=== PATIENT | male | born 1980 | race Caucasian/White ===

== ENCOUNTER 2017-08-05 15:32 | Emergency (ER) | payer MEDICAID ==
[2017-08-05] MEDS ORDERED: Sodium Chloride 0.9% 10 ML Syringe FLUSH PRN (16:53)
[2017-08-05] MEDS ORDERED: Morphine 4 MG/ML Syringe IVPUSH ONE (16:55)
[2017-08-05] MEDS ORDERED: Prochlorperazine 10 MG/2 ML SDV IVPUSH ONE ×2 (16:56→21:01)
[2017-08-05] MEDS: Nitroglycerin 0.4 MG Tab.SL SL PRN ×2 (17:02→17:13)
--- NOTE | 2017-08-05 17:07 | EDM.PDOC ---
<OfficerBam - Last Filed: 08/05/17 17:08> ED HPI GENERAL MEDICAL PROBLEM - General Chief Complaint: Headache Stated Complaint: HIGH BP/HEADACHE Time Seen by Provider: 08/05/17 16:50 Source of Information: Reports: Patient, Family, Old Records, RN Notes Reviewed History Limitations: Reports: No Limitations - History of Present Illness INITIAL COMMENTS - FREE TEXT/NARRATIVE: 37-year-old gentleman presents to the emergency department today complaint of headache, he does have a history of known aortic dissection happened about one year ago he is currently not taking any medications. He also has a history of migraine headaches he states this migraine is typical for him and has been ongoing for 1 hour. He denies any chest pain nausea vomiting shortness of breath , however he is diaphoretic Headache Pain Score (Numeric/FACES): 5 - Related Data Allergies Allergy/AdvReac Type Severity Reaction Status Date / Time codeine Allergy Cannot Verified 02/25/16 21:58 Remember Home Meds: Home Meds Metoprolol Succinate 100 mg PO QAM #30 tab.er.24h 08/05/17 [Rx] Past Medical History HEENT History: Reports: Impaired Vision Cardiovascular History: Reports: Hypertension, Stents Other Cardiovascular History: stents. 1and half ago at [facility], for aortic dissection Genitourinary History: Reports: Other (See Below) Other Genitourinary History: also had kidney failure while at [facility] Neurological History: Reports: Cerebral Aneurysms, Migraines - Infectious Disease History Infectious Disease History: Reports: Chicken Pox Social & Family History - Family History Cardiac: Reports: Hypertension - Tobacco Use Smoking Status *Q: Current Every Day Smoker Years of Tobacco use: 16 Packs/Tins Daily: 0.5 Second Hand Smoke Exposure: Yes - Caffeine Use Caffeine Use: Reports: Soda - Recreational Drug Use Recreational Drug Use: No ED ROS GENERAL - Review of Systems Review Of Systems: See Below Constitutional: Reports: Diaphoresis. Denies: Fever HEENT: Reports: No Symptoms Respiratory: Reports: No Symptoms Cardiovascular: Reports: No Symptoms GI/Abdominal: Reports: No Symptoms : Reports: No Symptoms Musculoskeletal: Reports: No Symptoms Skin: Reports: No Symptoms Neurological: Reports: Headache Psychiatric: Reports: No Symptoms - Physical Exam Exam: See Below Text/Narrative:: General: Male, moderate discomfort secondary to pain, alert and oriented x3 HEENT: head is atraumatic normocephalic, eyes pupils equal round reactive to light, sclera clear no conjunctivitis appreciated, funduscopic exam reveals sharp disc margins no papilledema noted. Ears tympanic membranes clear and montiel landmarks and light reflex are present bilaterally canals are clear. Nose no septal deviation, nares are clear, no blood present. Mouth mucosa is moist and pink no erythema or exudate noted in soft palate, tongue is midline uvula is midline, dentition is intact. Neck: Supple no thyromegaly no tracheal deviation. Nodes: Cervical nodes subclavicular nodes nontender no palpable lymphadenopathy noted. Lungs: clear to auscultation bilaterally with symmetrical respirations, no adventitious noise appreciated. CV: Regular rate and rhythm S1 and S2 appreciated no murmurs rubs or gallops noted. Abdomen: Soft, nontender, no palpable masses or organomegaly appreciated, no distention no guarding bowel sounds are present, . Neuro: Cranial nerves II through XII grossly intact Skin: Warm and dry, intact Extremities: No lower extremity edema appreciated, Course - Vital Signs Last Recorded V/S: Last Vital Signs Temp 36.1 C 08/05/17 19:41 Pulse 62 08/05/17 22:16 Resp 13 08/05/17 22:16 BP 158/110 H 08/05/17 22:16 Pulse Ox 100 08/05/17 22:16 - Orders/Labs/Meds Orders: Active Orders 24 hr Category Date Time Status Cardiac Monitoring [RC] .As Directed Care 08/05/17 16:54 Active EKG Documentation Completion [RC] ASDIRECTED Care 08/05/17 16:55 Active Peripheral IV Care [RC] . DIRECTED Care 08/05/17 16:55 Active CELL COUNT,CSF [BF] Stat Lab 08/05/17 19:42 Ordered CELL COUNT,CSF [BF] Stat Lab 08/05/17 19:46 Ordered CULTURE CSF + SMEAR [RM] Stat Lab 08/05/17 19:42 Ordered DRUG SCREEN, URINE [URCHEM] Stat Lab 08/05/17 16:53 Ordered GLUCOSE,CSF [BF] Stat Lab 08/05/17 19:42 Ordered PROTEIN,CSF [BF] Stat Lab 08/05/17 19:42 Ordered UA W/MICROSCOPIC [URIN] Stat Lab 08/05/17 16:53 Ordered Lactated Ringers [Ringers, Lactated] 1,000 ml Med 08/05/17 17:00 Active IV .BOLUS Lactated Ringers [Ringers, Lactated] 1,000 ml Med 08/05/17 21:15 Active IV ASDIRECTED Nitroglycerin [Nitrostat] Med 08/05/17 16:53 Active 0.4 mg SL Q5M PRN Sodium Chloride 0.9% [Saline Flush] Med 08/05/17 16:53 Active 10 ml FLUSH ASDIRECTED PRN Peripheral IV Insertion Adult [OM.PC] Stat Oth 08/05/17 16:53 Ordered EKG 12 Lead [EK] Stat Ther 08/05/17 16:55 Ordered Medication Orders Lactated Ringer's (Ringers, Lactated) 1,000 mls @ 500 mls/hr IV .BOLUS ANGELO Last Admin: 08/05/17 21:13 Dose: 500 mls/hr Infusion: 08/05/17 19:50 Dose: 500 mls/hr Admin: 08/05/17 17:50 Dose: 500 mls/hr Lactated Ringer's (Ringers, Lactated) 1,000 mls @ 500 mls/hr IV ASDIRECTED ANGELO Nitroglycerin (Nitrostat) 0.4 mg SL Q5M PRN PRN Reason: Chest Pain Stop: 08/06/17 16:54 Last Admin: 08/05/17 17:13 Dose: 0.4 mg Admin: 08/05/17 17:02 Dose: 0.4 mg Sodium Chloride (Saline Flush) 10 ml FLUSH ASDIRECTED PRN PRN Reason: Keep Vein Open Last Admin: 08/05/17 18:37 Dose: 10 ml Labs: Laboratory Tests 08/05/17 08/05/17 08/05/17 Range/Units 16:53 16:53 16:53 WBC 17.0 H (4.5-11.0) K/uL RBC 5.49 (4.30-5.90) M/uL Hgb 15.6 H D (12.0-15.0) g/dL Hct 46.8 (40.0-54.0) % MCV 85 (80-98) fL MCH 28 (27-31) pg MCHC 33 (32-36) % Plt Count 193 (150-400) K/uL Neut % (Auto) 83 H (36-66) % Lymph % (Auto) 11 L (24-44) % [place] % (Auto) 5 (2-6) % Eos % (Auto) 1 L (2-4) % Baso % (Auto) 0 (0-1) % Sodium (140-148) mmol/L Potassium (3.6-5.2) mmol/L Chloride (100-108) mmol/L Carbon Dioxide (21-32) mmol/L Anion Gap (5.0-14.0) mmol/L BUN (7-18) mg/dL Creatinine (0.8-1.3) mg/dL Est Cr Clr Drug Dosing mL/min Estimated GFR (MDRD) (>60) Glucose (74-106) mg/dL Calcium (8.5-10.1) mg/dL Total Bilirubin (0.2-1.0) mg/dL AST (15-37) U/L ALT (12-78) U/L Alkaline Phosphatase (46-116) U/L Troponin I (0.000-0.056) ng/mL C-Reactive Protein (0.0-0.3) mg/dL Total Protein (6.4-8.2) g/dL Albumin (3.4-5.0) g/dL Globulin (2.3-3.5) g/dL Albumin/Globulin Ratio (1.2-2.2) Urine Color Yellow Urine Appearance Clear Urine pH 5.0 (4.5-8.0) Ur Specific [place] 1.025 (1.008-1.030) Urine Protein 500 H (NEGATIVE) mg/dL Urine Glucose (UA) Normal (NEGATIVE) mg/dL Urine Ketones Negative (NEGATIVE) mg/dL Urine Occult Blood Negative (NEGATIVE) Urine Nitrite Negative (NEGAITVE) Urine Bilirubin Negative (NEGATIVE) Urine Urobilinogen Normal (NORMAL) mg/dL Ur Leukocyte Esterase Negative (NEGATIVE) Urine RBC 0-5 (0-5) Urine WBC 0-5 (0-5) Ur Epithelial Cells Not seen Amorphous Sediment Few Urine Bacteria Not seen Urine Mucus Few CSF Tube Number CSF Volume mls CSF Appearance (CLEAR) CSF Color (COLORLESS) CSF WBC (0-5) /ul CSF RBC (0-0) /ul CSF Mononuclear Cells (54-100) % CSF Polymorphonuclear (0-7) % CSF Glucose (40-70) mg/dL CSF Total Protein (15-45) mg/dL Urine Opiates Screen Positive H (NEGATIVE) Ur Oxycodone Screen Negative (NEGATIVE) Urine Methadone Screen Negative (NEGATIVE) Ur Propoxyphene Screen Negative (NEGATIVE) Ur Barbiturates Screen Negative (NEGATIVE) Ur Tricyclics Screen Negative (NEGATIVE) Ur Phencyclidine Scrn Negative (NEGATIVE) Ur Amphetamine Screen Positive H (NEGATIVE) U Methamphetamines Scrn Positive H (NEGATIVE) Urine MDMA Screen Negative (NEGATIVE) U Benzodiazepines Scrn Negative (NEGATIVE) U Cocaine Metab Screen Negative (NEGATIVE) U Marijuana (THC) Screen Positive H (NEGATIVE) Ethyl Alcohol mg/dL 08/05/17 08/05/17 08/05/17 Range/Units 16:53 16:53 18:23 WBC (4.5-11.0) K/uL RBC (4.30-5.90) M/uL Hgb (12.0-15.0) g/dL Hct (40.0-54.0) % MCV (80-98) fL MCH (27-31) pg MCHC (32-36) % Plt Count (150-400) K/uL Neut % (Auto) (36-66) % Lymph % (Auto) (24-44) % [place] % (Auto) (2-6) % Eos % (Auto) (2-4) % Baso % (Auto) (0-1) % Sodium 137 L (140-148) mmol/L Potassium 4.1 (3.6-5.2) mmol/L Chloride 98 L (100-108) mmol/L Carbon Dioxide 29 (21-32) mmol/L Anion Gap 14.1 H (5.0-14.0) mmol/L BUN 15 (7-18) mg/dL Creatinine 1.7 H (0.8-1.3) mg/dL Est Cr Clr Drug Dosing 61.60 mL/min Estimated GFR (MDRD) 46 L (>60) Glucose 116 H (74-106) mg/dL Calcium 10.1 (8.5-10.1) mg/dL Total Bilirubin 0.5 (0.2-1.0) mg/dL AST 19 (15-37) U/L ALT < 10 L (12-78) U/L Alkaline Phosphatase 97 (46-116) U/L Troponin I < 0.017 (0.000-0.056) ng/mL C-Reactive Protein 1.10 H (0.0-0.3) mg/dL Total Protein 8.8 H (6.4-8.2) g/dL Albumin 3.8 (3.4-5.0) g/dL Globulin 5.0 H (2.3-3.5) g/dL Albumin/Globulin Ratio 0.8 L (1.2-2.2) Urine Color Urine Appearance Urine pH (4.5-8.0) Ur Specific [place] (1.008-1.030) Urine Protein (NEGATIVE) mg/dL Urine Glucose (UA) (NEGATIVE) mg/dL Urine Ketones (NEGATIVE) mg/dL Urine Occult Blood (NEGATIVE) Urine Nitrite (NEGAITVE) Urine Bilirubin (NEGATIVE) Urine Urobilinogen (NORMAL) mg/dL Ur Leukocyte Esterase (NEGATIVE) Urine RBC (0-5) Urine WBC (0-5) Ur Epithelial Cells Amorphous Sediment Urine Bacteria Urine Mucus CSF Tube Number CSF Volume mls CSF Appearance (CLEAR) CSF Color (COLORLESS) CSF WBC (0-5) /ul CSF RBC (0-0) /ul CSF Mononuclear Cells (54-100) % CSF Polymorphonuclear (0-7) % CSF Glucose (40-70) mg/dL CSF Total Protein (15-45) mg/dL Urine Opiates Screen (NEGATIVE) Ur Oxycodone Screen (NEGATIVE) Urine Methadone Screen (NEGATIVE) Ur Propoxyphene Screen (NEGATIVE) Ur Barbiturates Screen (NEGATIVE) Ur Tricyclics Screen (NEGATIVE) Ur Phencyclidine Scrn (NEGATIVE) Ur Amphetamine Screen (NEGATIVE) U Methamphetamines Scrn (NEGATIVE) Urine MDMA Screen (NEGATIVE) U Benzodiazepines Scrn (NEGATIVE) U Cocaine Metab Screen (NEGATIVE) U Marijuana (THC) Screen (NEGATIVE) Ethyl Alcohol < 3 mg/dL 08/05/17 08/05/17 08/05/17 Range/Units 19:42 19:42 19:42 WBC (4.5-11.0) K/uL RBC (4.30-5.90) M/uL Hgb (12.0-15.0) g/dL Hct (40.0-54.0) % MCV (80-98) fL MCH (27-31) pg MCHC (32-36) % Plt Count (150-400) K/uL Neut % (Auto) (36-66) % Lymph % (Auto) (24-44) % [place] % (Auto) (2-6) % Eos % (Auto) (2-4) % Baso % (Auto) (0-1) % Sodium (140-148) mmol/L Potassium (3.6-5.2) mmol/L Chloride (100-108) mmol/L Carbon Dioxide (21-32) mmol/L Anion Gap (5.0-14.0) mmol/L BUN (7-18) mg/dL Creatinine (0.8-1.3) mg/dL Est Cr Clr Drug Dosing mL/min Estimated GFR (MDRD) (>60) Glucose (74-106) mg/dL Calcium (8.5-10.1) mg/dL Total Bilirubin (0.2-1.0) mg/dL AST (15-37) U/L ALT (12-78) U/L Alkaline Phosphatase (46-116) U/L Troponin I (0.000-0.056) ng/mL C-Reactive Protein (0.0-0.3) mg/dL Total Protein (6.4-8.2) g/dL Albumin (3.4-5.0) g/dL Globulin (2.3-3.5) g/dL Albumin/Globulin Ratio (1.2-2.2) Urine Color Urine Appearance Urine pH (4.5-8.0) Ur Specific [place] (1.008-1.030) Urine Protein (NEGATIVE) mg/dL Urine Glucose (UA) (NEGATIVE) mg/dL Urine Ketones (NEGATIVE) mg/dL Urine Occult Blood (NEGATIVE) Urine Nitrite (NEGAITVE) Urine Bilirubin (NEGATIVE) Urine Urobilinogen (NORMAL) mg/dL Ur Leukocyte Esterase (NEGATIVE) Urine RBC (0-5) Urine WBC (0-5) Ur Epithelial Cells Amorphous Sediment Urine Bacteria Urine Mucus CSF Tube Number 3 CSF Volume 2 mls CSF Appearance Clear (CLEAR) CSF Color Colorless (COLORLESS) CSF WBC 0 (0-5) /ul CSF RBC 1 H (0-0) /ul CSF Mononuclear Cells 0 L (54-100) % CSF Polymorphonuclear 0 (0-7) % CSF Glucose 58 (40-70) mg/dL CSF Total Protein 33.3 (15-45) mg/dL Urine Opiates Screen (NEGATIVE) Ur Oxycodone Screen (NEGATIVE) Urine Methadone Screen (NEGATIVE) Ur Propoxyphene Screen (NEGATIVE) Ur Barbiturates Screen (NEGATIVE) Ur Tricyclics Screen (NEGATIVE) Ur Phencyclidine Scrn (NEGATIVE) Ur Amphetamine Screen (NEGATIVE) U Methamphetamines Scrn (NEGATIVE) Urine MDMA Screen (NEGATIVE) U Benzodiazepines Scrn (NEGATIVE) U Cocaine Metab Screen (NEGATIVE) U Marijuana (THC) Screen (NEGATIVE) Ethyl Alcohol mg/dL 08/05/17 Range/Units 19:46 WBC (4.5-11.0) K/uL RBC (4.30-5.90) M/uL Hgb (12.0-15.0) g/dL Hct (40.0-54.0) % MCV (80-98) fL MCH (27-31) pg MCHC (32-36) % Plt Count (150-400) K/uL Neut % (Auto) (36-66) % Lymph % (Auto) (24-44) % [place] % (Auto) (2-6) % Eos % (Auto) (2-4) % Baso % (Auto) (0-1) % Sodium (140-148) mmol/L Potassium (3.6-5.2) mmol/L Chloride (100-108) mmol/L Carbon Dioxide (21-32) mmol/L Anion Gap (5.0-14.0) mmol/L BUN (7-18) mg/dL Creatinine (0.8-1.3) mg/dL Est Cr Clr Drug Dosing mL/min Estimated GFR (MDRD) (>60) Glucose (74-106) mg/dL Calcium (8.5-10.1) mg/dL Total Bilirubin (0.2-1.0) mg/dL AST (15-37) U/L ALT (12-78) U/L Alkaline Phosphatase (46-116) U/L Troponin I (0.000-0.056) ng/mL C-Reactive Protein (0.0-0.3) mg/dL Total Protein (6.4-8.2) g/dL Albumin (3.4-5.0) g/dL Globulin (2.3-3.5) g/dL Albumin/Globulin Ratio (1.2-2.2) Urine Color Urine Appearance Urine pH (4.5-8.0) Ur Specific [place] (1.008-1.030) Urine Protein (NEGATIVE) mg/dL Urine Glucose (UA) (NEGATIVE) mg/dL Urine Ketones (NEGATIVE) mg/dL Urine Occult Blood (NEGATIVE) Urine Nitrite (NEGAITVE) Urine Bilirubin (NEGATIVE) Urine Urobilinogen (NORMAL) mg/dL Ur Leukocyte Esterase (NEGATIVE) Urine RBC (0-5) Urine WBC (0-5) Ur Epithelial Cells Amorphous Sediment Urine Bacteria Urine Mucus CSF Tube Number 1 CSF Volume 2 mls CSF Appearance Clear (CLEAR) CSF Color Colorless (COLORLESS) CSF WBC 2 (0-5) /ul CSF RBC 4 H (0-0) /ul CSF Mononuclear Cells 50 L (54-100) % CSF Polymorphonuclear 50 H (0-7) % CSF Glucose (40-70) mg/dL CSF Total Protein (15-45) mg/dL Urine Opiates Screen (NEGATIVE) Ur Oxycodone Screen (NEGATIVE) Urine Methadone Screen (NEGATIVE) Ur Propoxyphene Screen (NEGATIVE) Ur Barbiturates Screen (NEGATIVE) Ur Tricyclics Screen (NEGATIVE) Ur Phencyclidine Scrn (NEGATIVE) Ur Amphetamine Screen (NEGATIVE) U Methamphetamines Scrn (NEGATIVE) Urine MDMA Screen (NEGATIVE) U Benzodiazepines Scrn (NEGATIVE) U Cocaine Metab Screen (NEGATIVE) U Marijuana (THC) Screen (NEGATIVE) Ethyl Alcohol mg/dL Meds: Medications Generic Name Dose Route Start Last Admin Trade Name Freq PRN Reason Stop Dose Admin Lactated Ringer's 1,000 mls @ 500 mls/hr 08/05/17 17:00 08/05/17 21:13 Ringers, Lactated IV 500 mls/hr .BOLUS ANGELO Administration Lactated Ringer's 1,000 mls @ 500 mls/hr 08/05/17 21:15 Ringers, Lactated IV ASDIRECTED ANGELO Nitroglycerin 0.4 mg 08/05/17 16:53 08/05/17 17:13 Nitrostat SL 08/06/17 16:54 0.4 mg Q5M PRN Administration Chest Pain Sodium Chloride 10 ml 08/05/17 16:53 08/05/17 18:37 Saline Flush FLUSH 10 ml ASDIRECTED PRN Administration Keep Vein Open Discontinued Medications Generic Name Dose Route Start Last Admin Trade Name Khanh PRN Reason Stop Dose Admin Amlodipine Besylate 5 mg 08/05/17 20:34 08/05/17 20:40 Norvasc PO 08/05/17 20:35 5 mg ONETIME ONE Administration Diphenhydramine HCl 25 mg 08/05/17 21:01 08/05/17 21:13 Benadryl IVPUSH 08/05/17 21:02 25 mg ONETIME ONE Administration Enalaprilat 1.25 mg 08/05/17 17:51 08/05/17 18:01 Vasotec Iv IVPUSH 08/05/17 17:52 1.25 mg ONETIME ONE Administration Ketorolac Tromethamine 15 mg 08/05/17 21:00 08/05/17 21:14 Toradol IVPUSH 08/05/17 21:01 15 mg ONETIME ONE Administration Metoprolol Tartrate 50 mg 08/05/17 18:30 08/05/17 18:34 Lopressor PO 08/05/17 18:31 50 mg ONETIME ONE Administration Morphine Sulfate 4 mg 08/05/17 16:55 08/05/17 17:04 Morphine IVPUSH 08/05/17 16:56 4 mg ONETIME ONE Administration Prochlorperazine Edisylate 5 mg 08/05/17 16:56 08/05/17 17:02 Compazine IVPUSH 08/05/17 16:57 5 mg ONETIME ONE Administration Prochlorperazine Edisylate 10 mg 08/05/17 21:01 08/05/17 21:15 Compazine IVPUSH 08/05/17 21:02 10 mg ONETIME ONE Administration Departure - Departure Disposition: Home, Self-Care 01 Clinical Impression: Migraine, Methamphetamine abuse, Marijuana abuse, Opiate use, Poly-drug misuser , Medical non-compliance HTN (hypertension) Qualifiers: Hypertension type: unspecified Qualified Code(s): I10 - Essential (primary) hypertension - Discharge Information Prescriptions: Metoprolol Succinate 100 mg PO QAM #30 tab.er.24h Referrals: PCP,None [Primary Care Provider] - Forms: ED Department Discharge Additional Instructions: Avoid salty foods. Take both metoprolol and amlodipine in the morning as soon as pharmacies open, then every morning. See your doctor in the clinic soon for recheck on your headache and BP. Return here as needed. Drink a sufficient amount of fluids so that your urine is light yellow in color. - My Orders Last 24 Hours: My Active Orders 08/05/17 19:42 CELL COUNT,CSF [BF] Stat CULTURE CSF + SMEAR [RM] Stat GLUCOSE,CSF [BF] Stat PROTEIN,CSF [BF] Stat 08/05/17 19:46 CELL COUNT,CSF [BF] Stat 08/05/17 21:15 Lactated Ringers [Ringers, Lactated] 1,000 ml IV ASDIRECTED - Assessment/Plan Last 24 Hours: My Active Orders 08/05/17 19:42 CELL COUNT,CSF [BF] Stat CULTURE CSF + SMEAR [RM] Stat GLUCOSE,CSF [BF] Stat PROTEIN,CSF [BF] Stat 08/05/17 19:46 CELL COUNT,CSF [BF] Stat 08/05/17 21:15 Lactated Ringers [Ringers, Lactated] 1,000 ml IV ASDIRECTED <Rubin Buchanan G - Last Filed: 08/05/17 22:58> Course - Vital Signs Text/Narrative:: CSF opening pressure reported by anesthesia to be 26. Departure - Departure Time of Disposition: 22:56 Condition: Fair
[2017-08-05] MEDS: Lactated Ringers 1,000 ML IV SCH ×2 (17:50→21:13)
[2017-08-05] MEDS ORDERED: Enalaprilat 1.25 MG/ML SDV IVPUSH ONE (17:51)
[2017-08-05] MEDS ORDERED: Metoprolol Tartrate 50 MG Tab PO ONE (18:30)
[2017-08-05] MEDS ORDERED: amLODIPine 5 MG Tab PO ONE (20:34)
[2017-08-05] MEDS ORDERED: Ketorolac 30 MG/ML SDV IVPUSH ONE (21:00)
[2017-08-05] MEDS ORDERED: diphenhydrAMINE 50 MG/ML SDV IVPUSH ONE (21:01)
[2017-08-05] MEDS ORDERED: Lactated Ringers 1,000 ML IV SCH (21:15)
[2017-08-05 22:16] VITALS: BP 158/110
--- NOTE | 2017-08-06 00:03 | ANES ---
DATE OF SERVICE: 08/05/2017 TIME: 1910 hours. INDICATIONS: Mr. Galindo is a 37-year-old male patient that Dr. Buchanan would like me to take a look at and evaluate for spinal tap for persistent headache. I talked to the patient about the risk and benefits of the procedure and he wished to proceed with a spinal tap. DESCRIPTION OF PROCEDURE: I placed him in the left lateral decubitus position. I prepped his back with Betadine x3. I performed the spinal tap at L5-S1. I used 1% lidocaine skin local. The spinal tap had very good feel throughout and cerebrospinal fluid was easily obtained. I did do an initial pressure, which was 26 cm of water. I then collected 4 consecutive tubes with approximately 1 mL each of cerebrospinal fluid. This fluid was clear throughout. The patient tolerated the procedure very nicely. I withdrew the needle and placed a Band-Aid over the site. He tolerated the procedure well and I discussed the results with Dr. Buchanan. Lucas Martinez CRNA /[id number]
== END 2017-08-05 23:09 | disposition home or self-care (01) ==
LOC: JP.ED 15:32
DX: G43.909 Migraine, unspecified, not intractable, without status migrainosus (principal); F15.10 Other stimulant abuse, uncomplicated; F12.10 Cannabis abuse, uncomplicated; F11.90 Opioid use, unspecified, uncomplicated; I10 Essential (primary) hypertension; F17.210 Nicotine dependence, cigarettes, uncomplicated; F19.90 Other psychoactive substance use, unspecified, uncomplicated; Z88.5 Allergy status to narcotic agent; Z91.14 Patient's other noncompliance with medication regimen
CPT/HCPCS: 36415; 62270; 80053; 80305; 81001; 82945; 82962; 84157; 84484; 85025; 86140; 87070; 87205; 89050; 93005; 96361; 96374; 96375; 99284; A9270; G0480; J0780; J1200; J1885; J2270; J7050; J7120